=== PATIENT | male | born 1990 | race Two or more races ===

== ENCOUNTER 2017-07-30 13:00 | Emergency (ER) | payer OTHER ==
[~2017-07-30] VITALS: Ht 165.1 cm; Wt 91.6 kg
--- NOTE | 2017-07-30 13:40 | Urgent Treatment Center Report ---
History of Present Issue Date/Time Seen by Provider 07/30/17 1335 Visit Reason Pt arrived:Walked Presenting Problem:PT FELL FROM THE TOBACCO BARN AND INJURIED HIS RT SHOULDER BLADE AND RT ELBOW. Location if Accident:Work Onset of symptoms date/time:/ or onset unknown for:MEDICAL HX UNKNOWN Have you (or family members/close friends) recently traveled outside the [place]? N If Yes, where/when: Have you had exposure to infectious disease within the past month? TB? Other? 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 Patient complaining of pain in his right shoulder blade and back area and pain in right elbow area. Denies LOC ALLERGIES Coded Allergies: No Known Allergies (07/30/17) History Medical History General CAD? No Angina: No [place]: No Hypertension? No CHF? No DVT? No PE? No COPD? No Asthma? No Anemia? No GERD? No Gastric ulcers? No GI Bleed? No Hernia? No Thyroid Problems? No Hypothyroidism? No CVA? No Diabetes? No Renal Insuffiency? No UTI? No Stones? No BPH? No GB Disease: No Nephritic Syndrome? No Asplenia? No Hepatitis? No Sickle Cell Disease? No Arthritis? No Migraines? No Cataracts? No Glaucoma? No MRSA? No HIV? No TB? No Anxiety? No Depression? No Cancer? No Site: N More? No Immunization HX DT/Tetanus Unknown Surgical Hx Previous Surgery?N Social History Smoking Hx Smoker: Never Smoker Tobacco: No Alcohol Alcohol: No Review of Systems All Other Systems Reviewed and Negative Musculoskeletal back pain, other Comment Patient having pain in right shoulder blade area and right elbow abrasion noted to left shoulder denies pain there Physical Exam Vital Signs Vital Signs Date Time Temp Pulse Resp B/P Pulse O2 O2 Flow FiO2 Ox Delivery Rate 07/30 1321 98.7 63 18 138/75 100 General Appearance normal appearance, WD/WN, no apparent distress Respiratory Status Yes: trachea midline, chest symmetrical, non tender chest. No: respiratory distress. Lung Sounds bilateral: normal breath sounds, lungs clear. 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 No Results/Orders Orders Procedure Date/time Status SCAPULA-RT 07/30 132 Active ELBOW-RT-3 VIEWS 07/30 1328 Active XRAY/CT/US XRAY/CT/US XRAY elbow, right scapula XR interpretation by reviewed by me Xray Results no fracture seen Progress [facility] Progress Notes Comment Consulted with Dr Anderson, Dr Anderson came to [facility] and evaluated patient and advised to send to ER for further testing ie CT, Patient state that now more of his back is starting to get more sore and hurting. Report given to Justin and nurses gave report to ER nurses and patient transfered to ER Departure Departure Time of Disposition 1450 Disposition Still a Patient Clinical Impression Primary Impression: Back pain Qualifiers: Back pain location: thoracic back pain Chronicity: unspecified Back pain laterality: right Qualified Code: M54.6 - Pain in thoracic spine Condition STABLE at 1452
--- NOTE | 2017-07-30 13:40 | Urgent Treatment Center Report ---
History of Present Issue Date/Time Seen by Provider 07/30/17 1335 Visit Reason Pt arrived:Walked Presenting Problem:PT FELL FROM THE TOBACCO BARN AND INJURIED HIS RT SHOULDER BLADE AND RT ELBOW. Location if Accident:Work Onset of symptoms date/time:/ or onset unknown for:MEDICAL HX UNKNOWN Have you (or family members/close friends) recently traveled outside the [place]? N If Yes, where/when: Have you had exposure to infectious disease within the past month? TB? Other? 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 Patient complaining of pain in his right shoulder blade and back area and pain in right elbow area. Denies LOC ALLERGIES Coded Allergies: No Known Allergies (07/30/17) History Medical History General CAD? No Angina: No [place]: No Hypertension? No CHF? No DVT? No PE? No COPD? No Asthma? No Anemia? No GERD? No Gastric ulcers? No GI Bleed? No Hernia? No Thyroid Problems? No Hypothyroidism? No CVA? No Diabetes? No Renal Insuffiency? No UTI? No Stones? No BPH? No GB Disease: No Nephritic Syndrome? No Asplenia? No Hepatitis? No Sickle Cell Disease? No Arthritis? No Migraines? No Cataracts? No Glaucoma? No MRSA? No HIV? No TB? No Anxiety? No Depression? No Cancer? No Site: N More? No Immunization HX DT/Tetanus Unknown Surgical Hx Previous Surgery?N Social History Smoking Hx Smoker: Never Smoker Tobacco: No Alcohol Alcohol: No Review of Systems All Other Systems Reviewed and Negative Musculoskeletal back pain, other Comment Patient having pain in right shoulder blade area and right elbow abrasion noted to left shoulder denies pain there Physical Exam Vital Signs Vital Signs Date Time Temp Pulse Resp B/P Pulse O2 O2 Flow FiO2 Ox Delivery Rate 07/30 1321 98.7 63 18 138/75 100 General Appearance normal appearance, WD/WN, no apparent distress Respiratory Status Yes: trachea midline, chest symmetrical, non tender chest. No: respiratory distress. Lung Sounds bilateral: normal breath sounds, lungs clear. 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 No Results/Orders Orders Procedure Date/time Status SCAPULA-RT 07/30 132 Active ELBOW-RT-3 VIEWS 07/30 1328 Active XRAY/CT/US XRAY/CT/US XRAY elbow, right scapula XR interpretation by reviewed by me Xray Results no fracture seen Progress [facility] Progress Notes Comment Consulted with Dr Anderson, Dr Anderson came to [facility] and evaluated patient and advised to send to ER for further testing ie CT, Patient state that now more of his back is starting to get more sore and hurting. Report given to Justin and nurses gave report to ER nurses and patient transfered to ER Departure Departure Time of Disposition 1450 Disposition Still a Patient Clinical Impression Primary Impression: Back pain Qualifiers: Back pain location: thoracic back pain Chronicity: unspecified Back pain laterality: right Qualified Code: M54.6 - Pain in thoracic spine Condition STABLE at 1452
--- NOTE | 2017-07-30 15:16 | RADIOLOGY REPORT PS360 ---
ELBOW-RT-3 VIEWS HISTORY: FALL INJURY Patient Age: 27 years: Male Ordering Physician: randolph TECHNIQUE: 3 views right elbow COMPARISON : None FINDINGS No fracture nor dislocation evident. No good evidence of joint effusion. But no discrete fracture at the radial head. Normal relationships joint space well maintained. Bones well mineralized. IMPRESSION: Right elbow intact. No fracture evident.. No joint effusion evident
--- NOTE | 2017-07-30 15:21 | Emergency Room Report ---
History of Present Illness Time Seen by [id number] Presenting Problem in Triage Pt arrived:Walked Presenting Problem:PT FELL FROM THE TOBACCO BARN AND INJURIED HIS RT SHOULDER BLADE AND RT ELBOW. IS TENDER IN THORACIC AREA UPON EXAM. 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 N Clinical Suspician of Infection? N Mental Status: 1 - Regular (Normal Baseline) Sepsis Risk:Low Sepsis Risk Have you (or family members/close friends) recently traveled outside the [place]? N If Yes, where/when: Have you had exposure to infectious disease within the past month? N TB? Other? 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 He was brought to urgent treatment center underwent a RIGHT shoulder and RIGHT elbow x-ray. There was no visible fracture. I went to the emergency treatment center and personally examined the patient and he had mid to lower thoracic tenderness. I recommended that he be transferred to the acute side of the ER and undergo a CT scan and rib x rays. The patient denies any head injuries, neck pain, numbness or tingling involving the upper and lower extremities, loss of bowel control. Source patient, RN notes reviewed, the patient is brought in accompanied by his employer. ALLERGIES Coded Allergies: No Known Allergies (07/30/17) History Medical History General CAD? No Angina: No [place]: No Hypertension? No CHF? No DVT? No PE? No COPD? No Asthma? No Anemia? No GERD? No Gastric ulcers? No GI Bleed? No Hernia? No Thyroid Problems? No Hypothyroidism? No CVA? No Diabetes? No Renal Insuffiency? No End Stage Renal Disease? No UTI? No Stones? No BPH? No GB Disease: No Nephritic Syndrome? No Asplenia? No Hepatitis? No Sickle Cell Disease? No Arthritis? No Migraines? No Cataracts? No Glaucoma? No MRSA? No HIV? No TB? No Anxiety? No Depression? No Cancer? No Site: N More? No Immunization Hx DT/Tetanus Unknown Surgical Hx Previous Surgery?N Social History Smoking Hx Smoker: Never Smoker Tobacco: No Alcohol Alcohol: No Review of Systems All Other Systems Reviewed and Negative Constitutional no symptoms reported Eyes no symptoms reported ENT no symptoms reported. Respiratory no symptoms reported Cardiovascular no symptoms reported Gastrointestinal no symptoms reported Genitourinary no symptoms reported. Musculoskeletal see HPI, back pain Skin see HPI (abrasions over the LEFT should) Psychiatric/Neurological no symptoms reported Physical Exam Vital Signs Vital Signs Date Time Temp Pulse Resp B/P Pulse O2 O2 Flow FiO2 Ox Delivery Rate 07/30 1455 98.2 51 18 142/88 97 07/30 1321 98.7 63 18 138/75 100 - WBC >12,000 or <4,000 or 10% bands? 2 or more SIRS Criteria Met? B/P:138/75 MAP:96 Creatinine >2.0? UA output<0.5ml/kg/hr for 2 hrs? Platelet count >100,000? Lactate >2.0mmol/1? INR >1.2 or PTT > than 60 sec? Evidence of Organ Dysfunction? Provider documented clinical suspician of infection? N Sepsis Criteria Count: 0 Sepsis Risk: Low Sepsis Risk General Appearance normal appearance, WD/WN Eye Exam - bilateral eye normal exam, bilateral eye PERRL, bilateral eye EOMI Ear, Nose, Throat hearing grossly normal, normal ENT inspection Neck normal inspection, non-tender, supple, full range of motion Respiratory Status Yes: trachea midline, chest symmetrical, non tender chest. No: respiratory distress. Lung Sounds bilateral: normal breath sounds, lungs clear. Cardiovascular normal exam, regular rate/rhythm, no peripheral edema, no gallop, no JVD, no murmur, no rub, normal peripheral pulses Peripheral Pulses Pulses normal Yes Gastrointestinal normal bowel sounds, normal exam, non tender, soft, no organomegaly Back normal inspection, vertebral tenderness, there was noted to have thoracic tenderness almost in the region of T6 and T8 Extremities non-tender, normal range of motion, normal inspection Neurologic alert, faceter II-XII nml as tested, normal exam, no motor/sensory deficits, oriented x 3 Reflexes Reflexes normal Yes Mental status normal mood/affect Skin abrasions over the LEFT shoulder Medical Decision Making LABS/Meds/Orders Pt receiving controlled substance in ED? No Results/Orders Orders Procedure Date/time Status DIET-NOTHING BY MOUTH 07/[address] SCAN REQ 07/30 1502 Complete VUEU-[id number]-EV-3 VIEWS 07/30 1502 Active SCAPULA-RT 07/30 1328 Active XRAY/CT/US XRAY/CT/US XRAY chest, elbow, shoulder XR interpretation by reviewed by me, discussed w/radiologist Xray Results normal/NAD, no fracture seen CT T-spine CT interpretation by reviewed by me, discussed w/radiologist Time results known: 1606 CT Results no fracture seen Comment see report: 1. Thoracic spine appears intact with no acute fracture. 2. Partially imaged lungs appear clear with no pneumothorax. 3. A line passing through the base of the right L1 transverse process noted but appears corticated & I strongly favor merely reflect rudimentary rib here/congenital variation reflecting the partial transitional nature of L1. Strongly doubt acute fracture by CT. Departure Departure Time of Disposition 1606 Disposition DC Home or Self Care(routine) Clinical Impression Primary Impression: Shoulder contusion Secondary Impressions: Contusion of back wall of thorax, Contusion of elbow, right, Skin abrasion Condition STABLE Referrals Reji MACKAY,Oren (Family) Additional Instructions After the patient was transferred to the acute side of the ED, his employer Mrs. Vásquez questioned the need for a CT scan. I informed her that I performed a trauma protocol after a positive spine survey. I obtained an x-ray of the but decided not to have the fevers because it does not seem necessary. I discussed the the thoracic CT with Dr. Bullock, the visible part of the chest shows no pneumothorax. No fractures were seen. Possible rudimentary rib at L1 level. The patient was instructed if he develops any weakness numbness of the lower extremities or sphincter disturbance to return for another CT scan up as an MRI . I conveyed all these information to the patient through a coleague of his who was translating in the presence of his employer. Dr. Anderson Discharge Counseling Counseled pt/family regarding diagnosis, test results, home care, follow up needs Prescriptions Current Visit Scripts Methocarbamol (Robaxin 750MG) 750 MG PO Q8HP PRN pain #15 TAB IBUPROFEN (Motrin 600MG) 600 MG PO Q6HP PRN pain #20 TAB ED Critical Care Critical Care No If Critical Care minutes are documented, the time involved in the performance of seperately reportable procedures was not counted toward critical care time documented. I directly delivered medical care to this critically ill and/or injured patient. Timely evaluation and treatment was necessary to address the significant organ system(s) dysfunction present in this patient. at [id number]
--- NOTE | 2017-07-30 15:56 | RADIOLOGY REPORT PS360 ---
CT THORACIC SPINE W/O CONTRAST HISTORY: FELL IN BARN 8 FT HIGH HOUSING TOBACCO, TENDERNESS T6-8 pain Patient Age: 27 years: Male Ordering Physician: Coty Anderson MD TECHNIQUE: Helical CT scanning performed through the thoracic spine with sagittal and coronal reconstructions on CT workstation. COMPARISON no prior studies.:2 view chest from today 07/30/2017 FINDINGS No acute findings at the thoracic spine. No fracture nor subluxation Spinous processes are intact overlying T4- T8 as well as other levels visualized. No compression fractures evident. Vertebral bodies are intact. Disc spaces well-maintained. But no paraspinal mass. Posterior ribs survey unremarkable. i Understand that the patient pain is most pronounced is between the scapula. --This area is unremarkable by CT The lungs are well expanded and clear with no pneumothorax. Airway unremarkable. Aorta unremarkable on this noncontrast study. Normal residual density from thymus anterior mediastinum. Faintly seen. At L1 there is a line passing through the base the of the right transverse process however its margins appear to be corticated best seen on coronal image 53 and there is no significant swelling about this area on the sagittal reconstruction view. 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 Unlikely, & doubt fracture here after reviewing all images IMPRESSION: 1. Thoracic spine appears intact with no acute fracture. 2. Partially imaged lungs appear clear with no pneumothorax. 3. A line passing through the base of the right L1 transverse process noted but appears corticated & I strongly favor merely reflect rudimentary rib here/congenital variation reflecting the partial transitional nature of L1. Strongly doubt acute fracture by CT.
--- NOTE | 2017-07-30 15:58 | RADIOLOGY REPORT PS360 ---
CHEST(2 VIEWS-NOT PORTABLE) HISTORY: 8 feet fall fell out of barn fell out of bar. Back pain chest pain Patient Age: 27 years: Male Ordering Physician: Coty Anderson MD TECHNIQUE: PA and lateral chest COMPARISON :07/30/2017. FINDINGS Lungs well expanded and clear no pneumothorax. No pleural effusion. No apparent rib fracture on this chest film. The T-spine appears intact with no compression fractures. No pleural effusion. The heart winifred and mediastinal structures satisfactory. IMPRESSION: --------- Lungs clear. \ No active disease in the chest
[2017-07-30] MEDS ORDERED: MOTRIN 600MG.600 MG PO (16:11)
[2017-07-30] MEDS ORDERED: ROBAXIN-750750 MG PO (16:11)
[2017-07-30 16:29] VITALS: BP 140/86
--- NOTE | 2017-07-31 08:40 | RADIOLOGY REPORT PS360 ---
SCAPULA-RT HISTORY: FALL INJURY right shoulder pain fell from barn Patient Age: 27 years: Male [place]ing Phys[place] [facility]: 3 views right scapula COMPARISON :None FINDINGS The right scapula appears intact. No fracture. Normal morphology. No lesions. No fracture nor dislocation. Normal glenohumeral relationship. Humeral head and neck intact. AC joint intact. Upper right ribs and chest intact IMPRESSION: Negative scapula and shoulder right shoulder . No fracture nor dislocation
--- NOTE | 2017-07-31 08:40 | RADIOLOGY REPORT PS360 ---
SCAPULA-RT HISTORY: FALL INJURY right shoulder pain fell from barn Patient Age: 27 years: Male [place]ing Phys[place] [facility] [place]: 3 views right scapula COMPARISON :None FINDINGS The right scapula appears intact. No fracture. Normal morphology. No lesions. No fracture nor dislocation. Normal glenohumeral relationship. Humeral head and neck intact. AC joint intact. Upper right ribs and chest intact IMPRESSION: Negative scapula and shoulder right shoulder . No fracture nor dislocation
== END 2017-07-30 16:29 | disposition home or self-care (01) ==
LOC: UTC 13:00 → ER 13:00
DX: S40.011A Contusion of right shoulder, initial encounter (principal); S50.01XA Contusion of right elbow, initial encounter; S20.221A Contusion of right back wall of thorax, initial encounter; W13.0XXA Fall from, out of or through balcony, initial encounter; Y92.71 Barn as the place of occurrence of the external cause; Y99.0 Civilian activity done for income or pay